=== PATIENT | female | born 1960 | race Caucasian/White ===

== ENCOUNTER 2024-07-29 10:45 | Observation (INO) | payer OTHER ==
--- OUTSIDE RECORDS SUMMARY | 2024-07-29 10:49 | XMS REPORT | Continuity of Care Document ---
Author Name Unknown Address [address] [place] [address] [facility] th[facility] Address [address] [place] [address] Care Team Providers Care Corn Grinder Name Role Phone ELIZABETH MORAN Primary Care Physician Unav ailable Radiology Attending Clinician Unavailable RADIOLOGY Attending Clinician Unavailable Addison Manuel Attending Clinician +[phone] Omari Pearson MD Attending Clinician +[phone] ADDISON OROSCO Attending Clinician Unavailable NURSE, NURSE Attending Clinician Unavailable Doctor Unassigned, [place] Attending Clinician [facility], Adc Fam Pob I Attending Clinician Unavailab Coby Chi Attending Clinician + [phone] CO[address] CHAVES Attending Clinician Unavailable CARRIE COSTA Admitting Clinician Unavailable ELIZABETH MORAN Admitting Clinician Unavail able Payers Payer Name Policy Type Policy Number Effective Date Expirati on Date Source Problems Condition Name Condition Details Condition Category Status Onset Date Resolution Date Last Treatment Date Treating Clinician Comments Source No known active problems No known active problems Disease [facility] Allergies, Adverse Reactions, Alerts Allergy Name Allergy Type Status Severity Reaction(s) Onset Date Inactive Date Treating Clinician Comments Source NO KNOWN ALLERGIE S Drug Class Active [facility] Social History Social Habit Start Date Stop Date Quantity Comments Source History of tobacco use Cigarette Smoker [facility] Sex Assigned At Female [facility] Sexual orientation [facility] Exposure to SARS-CoV-2 (event) 2022-07-28 00:00:2022-08-07 14:42:00 Not sure [facility] History of Social function 2022-01-19 00:00:00 2022-01-19 00:00:00 [facility] Alcohol intake 2022-01-19 00:00:00 2022-01-19 00:00:00 Current drinker of alcohol (finding) [facility] Tobacco use and exposure 2021-12-27 00:00:00 2021-12-27 00:00:00 Smokeless tobacco non-user [facility] Smoking Status Start Date Stop Date Source Tobacco smoking consumption unknown [facility] Smokes tobacco daily 2021-12-27 00:00:00 [facility] Medications Ordered Medication Name Filled Medication Name Start Date Stop Date Current Medication? Ordering Clinician Indication Dosage Frequency Signature (SIG) Comments Components Source DICLOFENAC 75 mg EC tablet 11-19 00:00: 00 Yes [id number] 4109 75mg TAKE 1 TABLET BY MOUTH IN THE MORNING AND 1 TABLET IN THE EVENING. TAKE WITH MEALS. [facility] DICLOFENAC 75 mg EC tablet 08-21 00:00: 00 Yes [id number] 4109 75mg TAKE 1 TABLET BY MOUTH IN THE MORNING AND 1 TABLET IN THE EVENING. TAKE WITH MEALS. [facility] DICLOFENAC 75 mg EC tablet 2021-05 00:00: 00 08-21 00:00 :00 No [id number] 4109 75mg TAKE 1 TABLET BY MOUTH IN THE MORNING AND 1 TABLET IN THE EVENING. TAKE WITH MEALS. [facility] DICLOFENAC 75 mg EC tablet 02-20 00:00: 00 Yes [id number] 9102 75mg TAKE 1 TABLET BY MOUTH IN THE MORNING AND 1 TABLET IN THE EVENING. TAKE WITH MEALS. [facility] diclofenac 75 mg EC tablet 12-27 00:00: 00 02-20 00:00 :00 No [id number] 9102 75mg Take 1 tablet by mouth in the morning and 1 tablet in the evening. Take with meals. [facility] carvediloL 12.5 mg tablet 8 00:00: 00 Yes [facility] LINZESS 145 mcg capsule 12-15 00:00: 00 Yes TAKE 1 CAPSULE BY MOUTH DAILY 30 MINUTES BEFORE BREAKFAST [facility] buprenorphi ne-naloxone 8-2 mg sublingual film 12-05 00:00: [address] 1[address]5 FILMS SUBLINGUAL Y DAILY [facility] meloxicam 15 mg tablet 11-15 00:00: 00 Yes 15mg Take 15 mg by mouth every morning. [facility] torsemide 20 mg tablet 11-15 00:00: 00 Yes 20mg Take 20 mg by mouth every morning. [facility] terbinafine HCL 250 mg tablet 10-16 00:00: 00 Yes 250mg Take 250 mg by mouth in the morning. [facility] Vital Signs Vital Name Observation Time Observation Value Comments S ourfarnaz Systolic blood pressure 2021-12-27 17:52:00 135 mm[Hg] [facility] Diastolic blood pressure 2021-12-27 17:52:00 75 mm[Hg] [facility] Heart rate 2021-12-27 17:52:00 65 /min [facility] Body height 2021-12-27 17:52:00 170.2 cm [facility] Body weight 2021-12-27 17:52:00 111.131 kg [facility] BMI 2021-12-27 17:52:00 38.37 kg/m2 [facility] Procedures Procedure Date / Time Performed Performing Clinician Source BI DIAGNOSTIC TOMOSYNTHESIS BILATERAL 2023-09-04 19:56:18 Requisition, Paper [facility] BI DIAGNOSTIC TOMOSYNTHESIS LEFT 2023-03-19 16:08:00 Elizabeth Moran [facility] BI DIAGNOSTIC TOMOSYNTHESIS BILATERAL 2022-08-07 21:39:22 Requisition, Paper [facility] NOTICE OF PRIVACY PRACTICES 2022-08-07 19:39:44 Doctor Unassigned, [place] [facility] CONSENT/REFUSAL FOR DIAGNOSIS AND TREATMENT 2022-08-07 19:39:28 Doctor Unassigned, [place] [facility] ASSIGNMENT OF BENEFITS 2022-08-07 19:39:12 Docto r Unassigned, [place] [facility] BI ALYSSA GUIDED CORE BREAST BIOPSY RIGHT 2022-01-19 16:51:02 Elizabeth Moran [facility] Encounters Start Date/Time End Date/Time Encounter Type Admission Type Attending Clinicians Care Facility Care Department Encounter ID Source 2023-09-04 14:12:23 2023-09-04 23:59:00 Hospital Encounter Radiology [facility] [id number] 350.1.13.10 4.2.7.2.686 [id number] [facility] 2023-09-04 14:12:23 2023-09-04 23:59:00 Outpatient R RADIOLOGY [facility] [id number] [facility] 2023-03-19 14:30:00 2023-03-19 23:59:00 Outpatient R RADIOLOGY [facility] [id number] [facility] 2023-03-19 10:39:00 2023-03-19 23:59:00 Hospital Encounter Radiology [facility] [id number] 350.1.13.10 4.2.7.2.686 [id number] [facility] 2023-03-06 15:00:00 2023-03-06 15:00:00 Outpatient R RADIOLOGY [facility] [id number] [facility] 2023-02-08 00:00:00 2023-02-08 00:00:00 Outpatient R RADIOLOGY [facility] [id number] [facility] 2022-11-16 00:00:00 2022-11-16 00:00:00 Addison Arnold [facility] [id number] 350.1.13.10 4.2.7.2.686 [id number] [facility] 2022-08-19 00:00:00 2022-08-19 00:00:00 Addison Arnold [facility] 1.2840.114 350.1.13.10 4.2.7.2.686 [id number] [facility] 2022-08-07 14:42:53 2022-08-07 23:59:00 Outpatient R RADIOLOGY [facility] [id number] [facility] 2022-08-07 14:42:53 2022-08-07 23:59:00 Hospital Encounter Radiology [facility] 1.2840.114 350.1.13.10 4.2.7.2.686 [id number] [facility] 2022-05-18 00:00:00 2022-05-18 00:00:00 RefAddison Martinez [facility] 1.84.114 350.1.13.10 4.2.7.2.686 [id number] [facility] 2022-02-20 00:00:00 2022-02-20 00:00:00 Refill Omari Pearson [facility] 1.84.114 350.1.13.10 4.2.7.2.686 [id number] [facility] 2022-01-19 09:49:54 2022-01-19 23:59:00 Outpatient R RADIOLOGY [facility] [id number] [facility] 2022-01-19 09:49:54 2022-01-19 23:59:00 Hospital Encounter Radiology [facility] 1.2.114 350.1.13.10 4.2.7.2.686 [id number] [facility] 2021-12-29 00:00:00 2021-12-29 00:00:00 Telephone Omari Pearson [facility] 1.284.114 350.1.13.10 4.2.7.2.686 [id number] [facility] 2021-12-27 13:05:00 2021-12-27 23:59:00 Outpatient ADDISON NIX [facility] [id number] [facility] 2021-12-27 14:00:00 2021-12-27 14:00:00 Office Visit MichelOmari [facility] 1.2.840.114 350.1.13.10 4.2.7.2.686 [id number] [facility] 2021-12-27 13:05:00 2021-12-27 13:05:00 Outpatient Bhupendra OROSCO [facility] [id number] [facility] 2021-12-19 12:29:36 2021-12-19 23:59:00 Hospital Encounter Radiology [facility] 1.2840.114 350.1.13.10 4.2.7.2.686 [id number] [facility] 2021-12-19 12:29:18 2021-12-19 23:59:00 Outpatient R RADIOLOGY [facility] [id number] [facility] 2021-12-19 12:29:18 2021-12-19 23:59:00 Hospital Encounter Radiology [facility] 1.2840.114 350.1.13.10 4.2.7.2.686 [id number] [facility] 2021-07-27 15:08:54 2021-07-27 23:59:00 Outpatient R RADIOLOGY [facility] RAD [id number] [facility] 2021-07-27 15:08:54 2021-07-27 23:59:00 Hospital Encounter Radiology [facility] [id number] 350.1.13.10 4.2.7.2.686 [id number] [facility] 2020-07-19 09:52:00 2020-07-19 09:52:00 Outpatient NURSE, N[facility]SE [id number] 2020-07-19 09:52:00 2020-07-19 09:52:00 Outpatient NURSE, NURSE [facility] [id number] [facility] 2020-01-10 00:00:00 2020-01-10 00:00:00 Patient Secure Msg Doctor Unassigned, [place] [facility] 1..114 350.1.13.10 4.2.7.2.686 [id number] [facility] 2020-01-08 15:19:04 2020-01-08 15:28:59 Laboratory Only Lab, [facility] Leah [facility] [address] 1..114 350.1.13.10 4.2.7.2.686 [id number] [facility] 2020-01-08 15:19:04 2020-01-08 15:28:59 Laboratory Only Lab, [facility] [address] 1.0.114 350.1.13.10 4.2.7.2.686 [id number] 2020-01-08 15:20:00 2020-01-08 15:20:00 Outpatient R [facility] [id number] [facility] 2020-01-08 00:00:00 2020-01-08 00:00:00 Letter (Out) Doctor Unassigned, [place] [facility] 1..114 350.1.13.10 4.2.7.2.686 [id number] [facility] Results Test Description Test Time Test Comments Results Result Comments Source BI DIAGNOSTIC TOMOSYNTHESIS BILATERAL 20:01:38 Examination:BI DIAGNOSTIC TOMOSYNTHESIS BILATERAL History:Patient is 63 year old and is seen for: ?Encounter for screening, unspecified. Computer-aided detection (CAD) utilized. Comparisons: 03/19/2023 BI DIAGNOSTIC TOMOSYNTHESIS LEFT, 08/07/2022 BI DIAGNOSTIC TOMOSYNTHESIS BILATERAL, 12/19/2021 BI DIAGNOSTIC TOMOSYNTHESIS BILATERAL, and 07/27/2021 BI SCREENING TOMOSYNTHESIS BILATERAL Prior exam with following findings: The left breast has scattered areas of fibroglandular density. There are stable subcentimeter focal asymmetries in the lower outer quadrant, anterior depth. ?Best seen on L SCC 10/ and L SML 33/77. CURRENT EXAM: Findings:The breasts have scattered areas of fibroglandular density. LeftAgain noted are stable appearing subcentimeter focal asymmetries in the lower outer quadrant of the left breast, anterior depth; best seen on LCC image 9 of 69 and LML image 17 of 79-stable and benign. There is no evidence of new suspicious masses, calcifications, or other abnormal findings in the left breast. RightThere is no evidence of new suspicious masses, calcifications, or other abnormal findings in the right breast. Impression:No mammographic evidence of malignancy. Recommendation:Annual mammographic follow-up - BilateralClinical follow-up is also recommended, and further management of clinical findings should be based on the results of clinical evaluation. BI-RADS Category: Both 2 - Benign [facility]
[2024-07-29] MEDS ORDERED: NA CHLORIDE 0.9% 250 ML ONE (11:46)
[2024-07-29 12:14] LABS: Absolute Eosinophils 0.1 K/uL (0-0.5); Absolute Lymphocytes (CBC) 2.1 K/uL (0.7-4.9); Absolute Monocytes 0.4 K/uL (0.1-1.3); Absolute Neutrophil 3.2 K/uL (1.8-8.0); Basophils % 0.7 % (0-1.3); Eosinophils % 1.8 % (0-4.4); Hematocrit 35.1 % (36.0-45.0); Hemoglobin 11.9 g/dL (12.0-15.0); Lymphocytes % 35.8 % (15.3-44.8); MCH 32.3 pg (27.0-35.0); MCV 95.1 fL (80-100); MPV 9.1 fL (7.6-11.3); Monocytes % 6.7 % (3.3-12.3); Platelets 163 thou/uL (152-406); RBC Red Blood Cell Count 3.69 M/uL (3.86-4.86); Red Cell Distribution Width 13.5 % (12.1-15.2)
[2024-07-29 12:20] LABS: Specific Gravity 1.006 (1.005-1.030); Sqamous Epithelial <5 /HPF (None Seen); Urine Bacteria None Seen /HPF (<20); Urine Bilirubin NEGATIVE (Negative); Urine Blood Negative (Negative); Urine Clarity Extremely Turbid (Clear); Urine Color Colorless (Yellow); Urine Culture Reflex Order NOT NEEDED; Urine Glucose NEGATIVE (Negative); Urine Ketones NEGATIVE (Negative); Urine Microscopic Reflex YN ORDER UMIC; Urine Nitrite NEGATIVE (Negative); Urine Protein NEGATIVE (Negative); Urine RBC None Seen /HPF (None Seen); Urine Urobilinogen Normal (Normal); Urine WBC None Seen /HPF (<5); Urine pH 7.5 (5.0-7.0)
[2024-07-29 12:21] LABS: PT Prothrombin Time 12.2 SECONDS (10.0-13.0); Protime INR 1.07
[2024-07-29 12:36] LABS: Albumin 4.1 g/dL (3.4-5.0); Albumin/Globulin Ratio 1.2 (1.1-1.8); Bilirubin Direct 0.2 mg/dL (0-0.2); Bilirubin Indirect, Calculated 0.2 mg/dL (0.2-0.8); Bilirubin Total 0.4 mg/dL (0.2-1.0); Globulin 3.5 g/dL (2.3-3.5); Magnesium 2.8 mg/dL (1.6-2.4); Protein, Total 7.6 g/dL (6.4-8.2); Troponin High Sensitivity 5.1 pg/mL (<58.9)
--- NOTE | 2024-07-29 12:54 | RAD REPORT ---
EXAMINATION: ONE VIEW CHEST XR CLINICAL INDICATION: Female, 63 years old.,COUGH TECHNIQUE: Frontal chest projection is submitted. Examination is limited by patient positioning and t echnique. COMPARISON: No prior exam. FINDINGS: The lungs are well inflated and clear. No pneumothorax or sizable effusion. The heart is normal in s ize. Mediastinal contours are unremarkable. IMPRESSION: No acute intrathoracic abnormalities.
--- NOTE | 2024-07-29 12:58 | RAD REPORT ---
EXAM: CT brain without contrast HISTORY: PAIN COMPARISON: None TECHNIQUE: Multiple contiguous axial images were obtained and a CT of the brain without contrast. Sag ittal and coronal reformats were performed. FINDINGS: No evidence of hydrocephalus, intracranial hemorrhage, or extra-axial fluid collection. The brain is normal in morphology. The calvarium is intact. The visualized paranasal sinuses and mastoid air cells are essentially clear . IMPRESSION: No evidence of acute intracranial abnormality. EXAM: CT of the cervical spine without contrast HISTORY: PAIN COMPARISON: None TECHNIQUE: Multiple contiguous axial images were obtained in a CT of the cervical spine without contr ast. Sagittal and coronal reformats were performed. FINDINGS: The vertebral bodies demonstrate normal height and alignment. No evidence of acute fracture or subluxation.. No degenerative changes are present. No prevertebral soft tissue swelling is seen. The posterior facets are well aligned. Normal alignment of the skull base with the cervical spine is seen. The lung apices are unremarkable. IMPRESSION: No evidence of acute osseous abnormality of the cervical spine.
--- NOTE | 2024-07-29 13:10 | RAD REPORT ---
EXAM: CT CHEST, ABDOMEN AND PELVIS WITHOUT CONTRAST CLINICAL INDICATION: Female, 63 years old. [facility] MAIN SYNCOPE, RT RIB PAIN TECHNIQUE: CT chest, abdomen and pelvis was performed, without IV contrast, as per department protoco l. Axial, sagittal and coronal reconstructions were obtained. One or more of the following dose reduction techniques were used: Automated exposure control, adjustment of the mA and/or kV according to the patient size, and/or iterative reconstruction. Unless otherwise specified, incidental findings do not require dedicated imaging follow-up. COMPARISON: No prior exam. FINDINGS: The lack of intravenous contrast limits the sensitivity of this exam for evaluation of solid visceral organs, vascular structures, and retroperitoneum. Chest: LOWER NECK/CHEST WALL: Visualized thyroid gland and soft tissues are normal. LUNGS AND AIRWAYS: Airways are clear. No evidence of airspace or interstitial process. No nodules. PLEURA: No pleural effusion. No pneumothorax. Hemidiaphragms are normally positioned. MEDIASTINUM AND LYMPH NODES: No mediastinal mass or fluid collection. Normal size mediastinal, hilar, and axillary lymph nodes. THORACIC AORTA: Normal caliber and configuration. PULMONARY ARTERIES: Normal caliber. HEART: Unremarkable. Abdomen/Pelvis LIVER: Normal in size and contour. No focal lesion. GALLBLADDER/BILE DUCTS: Status post cholecystectomy. PANCREAS: No mass, ductal dilation, or nafisa-pancreatic fluid. SPLEEN: Normal size. No focal lesion. ADRENALS: Normal; no mass. KIDNEYS AND URETERS: Normal size and contour. No hydronephrosis. GASTROINTESTINAL TRACT: Stomach is non-dilated. Small bowel has normal course and caliber. No colonic wall thickening or pericolonic inflammatory changes. PERITONEUM: No free fluid. LYMPH NODES: No lymphadenopathy. ABDOMINAL AORTA AND OTHER VESSELS: Normal caliber aorta and IVC. URINARY BLADDER: Normal contour. REPRODUCTIVE ORGANS: No pathologic process. MUSCULOSKELETAL: Mildly displaced anterior right seventh, eighth, and ninth rib fractures. Grade 1 an terolisthesis of L4 over L5. ADDITIONAL FINDINGS: None IMPRESSION: Mildly displaced anterior right seventh, eighth, and ninth rib fractures. No other acute or significant abnormalities within the chest, abdomen, or pelvis.
[2024-07-29] MEDS ORDERED: MORPHINE 4 MG/ML SYR ONE (15:02)
[2024-07-29] MEDS ORDERED: ONDANSETRON 4 MG/2 ML VIAL ONE (15:02)
[2024-07-29] MEDS ORDERED: DIAZEPAM 5 MG TABLET ONE (15:03)
--- NOTE | 2024-07-29 15:13 | EDPHYS ---
Physician Documentation [facility] Name: Lucy Crisostomo Age: 63 yrs Sex: Female : 1960 Arrival Date: 07/29/2024 Time: 10:45 Bed 13 Private MD: ED Physician Alexander Deshpande HPI: 07/29 15:02 This 63 yrs old Female presents to ER via EMS with complaints of syncop , junie fall , right chest wall pain. 15:02 . The patient has experienced syncope, became unresponsive, collapsed. Onset: The junie symptoms/episode began/occurred just prior to arrival. Duration: This was a single episode, that lasted 20 second(s). Context: the episode(s) was witnessed, by co-worker(s). The patient or guardian reports chest pain that is located primarily in the anterior chest wall, anterior aspect of right upper chest and right breast. Associated signs and symptoms: Pertinent positives: None. The chest pain is described as sharp. Modifying factors: The symptoms are alleviated by remaining still, the symptoms are aggravated by deep breath, movement, palpation of area. Historical: - Allergies: 11:15 No Known Allergies; ll1 - PMHx: 11:15 Hypertensive disorder; Osteoarthritis; ll1 - PSHx: 11:15 hysterectomy; ll1 - Immunization history:: Adult Immunizations up to date. - Infectious Disease History:: Denies. - Social history:: Smoking status: Patient denies any tobacco usage or history of. - Family history:: not pertinent. ROS: 15:02 Constitutional: Negative for fever, chills, and weight loss, Eyes: Negative for injury, junie pain, redness, and discharge, ENT: Negative for injury, pain, and discharge, Neck: Negative for injury, pain, and swelling, Cardiovascular: Negative for chest pain, palpitations, and edema, Abdomen/GI: Negative for abdominal pain, nausea, vomiting, diarrhea, and constipation, Back: Negative for injury and pain, : Negative for injury, bleeding, discharge, and swelling, MS/Extremity: Negative for injury and deformity, Skin: Negative for injury, rash, and discoloration, Psych: Negative for depression, anxiety, suicide ideation, homicidal ideation, and hallucinations, Allergy/Immunology: Negative for hives, rash, and allergies, Endocrine: Negative for neck swelling, polydipsia, polyuria, polyphagia, and marked weight changes, 15:02 Respiratory: Positive for cough, with no reported sputum, 15:02 Neuro: Positive for syncope, Exam: 15:02 Constitutional: This is a well developed, well nourished patient who is awake, alert, junie and in no acute distress. Head/Face: Normocephalic, atraumatic. Eyes: Pupils equal round and reactive to light, extra-ocular motions intact. Lids and lashes normal. Conjunctiva and sclera are non-icteric and not injected. Cornea within normal limits. Periorbital areas with no swelling, redness, or edema. ENT: Nares patent. No nasal discharge, no septal abnormalities noted. Tympanic membranes are normal and external auditory canals are clear. Oropharynx with no redness, swelling, or masses, exudates, or evidence of obstruction, uvula midline. Mucous membranes moist. Neck: Trachea midline, no thyromegaly or masses palpated, and no cervical lymphadenopathy. Supple, full range of motion without nuchal rigidity, or vertebral point tenderness. No Meningismus. Cardiovascular: Regular rate and rhythm with a normal S1 and S2. No gallops, murmurs, or rubs. Normal PMI, no JVD. No pulse deficits. Respiratory: Lungs have equal breath sounds bilaterally, clear to auscultation and percussion. No rales, rhonchi or wheezes noted. No increased work of breathing, no retractions or nasal flaring. Abdomen/GI: Soft, non-tender, with normal bowel sounds. No distension or tympany. No guarding or rebound. No evidence of tenderness throughout. Back: No spinal tenderness. No costovertebral tenderness. Full range of motion. Skin: Warm, dry with normal turgor. Normal color with no rashes, no lesions, and no evidence of cellulitis. MS/ Extremity: Pulses equal, no cyanosis. Neurovascular intact. Full, normal range of motion., bilateral aka Neuro: Awake and alert, GCS 15, oriented to person, place, time, and situation. Cranial nerves II-XII grossly intact. Motor strength 5/5 in all extremities. Sensory grossly intact. Cerebellar exam normal. Normal gait. Psych: Awake, alert, with orientation to person, place and time. Behavior, mood, and affect are within normal limits. 15:02 Chest/axilla: Inspection: normal, no acute changes, Palpation: tenderness, that is moderate, of the right breast, Axilla: are normal, Breasts: are normal, Lymph nodes: lymphadenopathy is not appreciated, 15:02 ECG was reviewed by the Attending Physician. Vital Signs: 12:00 BP 115 / 61; Pulse 60; Resp 18; Pulse Ox 98% on R/A; db 15:10 BP 158 / 73; Pulse 64; Resp 18; Pulse Ox 98% on R/A; db 16:00 BP 111 / 58; Pulse 52; Resp 16; Pulse Ox 97% ; db 17:00 BP 115 / 62; Pulse 50; Resp 18; Temp 98; Pulse Ox 95% on R/A; db MDM: 10:53 Medical Screening Exam initiated junie 15:06 Differential Diagnosis altered mental status. Differential Diagnosis: cardiac junie arrhythmia, cerebrovascular accident, emotional response, GI bleed, idiopathic syncope, pseudo seizure, seizure, sepsis, transient ischemic attack, vasovagal episode. Differential diagnosis: Blunt Chest Trauma Chest Wall Contusion Chest Wall Injury Hemopericardium Pleural Effusion Pneumomediastinum Pneumopericardium Pneumothorax Pulmonary Contusion Rib Fracture Ruptured Hemidiaphragm. Data reviewed: vital signs, nurses notes, EMS record, lab test result(s), EKG, radiologic studies, CT scan, plain films. Consideration of Admission/Observation Patient was admitted/placed on observation. Escalation of care including admission/observation considered. Independent interpretation of the following test(s) in the Emergency Department EKG: See my EKG interpretation above. Test considered but Not performed: Ultrasound no 2 d echo. Historians other than the Patient: EMS: ems well informed. Spouse/Significant Other: spouse well informed. Care significantly affected by the following chronic conditions: Hypertension, Obesity. Counseling: I had a detailed discussion with the patient and/or guardian regarding the historical points, exam findings, and any diagnostic results supporting the discharge/admit diagnosis, the presence of at least one elevated blood pressure reading (>120/80) during this emergency department visit, lab results, radiology results, the need for further work-up and treatment in the hospital. 07/29 10:55 Order name: Basic Metabolic Panel; Complete Time: 14:52 [facility] 07/29 10:55 Order name: CBC with Diff; Complete Time: 14:52 [facility] 07/29 10:55 Order name: LFT's; Complete Time: 14:52 ujnie 07/29 10:55 Order name: Magnesium; Complete Time: 14:52 junie 07/29 10:55 Order name: NT PRO-BNP; Complete Time: 14:52 junie 07/29 10:55 Order name: PT-INR; Complete Time: 14:52 junie 07/29 10:55 Order name: Troponin HS; Complete Time: 14:52 junie 07/29 10:55 Order name: Lipase; Complete Time: 14:52 junie 07/29 10:55 Order name: Urinalysis w/ reflexes; Complete Time: 14:52 junie 07/29 16:02 Order name: Basic Metabolic Panel EDMS 07/29 16:02 Order name: Basic Metabolic Panel EDMS 07/29 16:02 Order name: Basic Metabolic Panel EDMS 07/29 16:02 Order name: Basic Metabolic Panel EDMS 07/29 16:02 Order name: Basic Metabolic Panel EDMS 07/29 16:02 Order name: Basic Metabolic Panel EDMS 07/29 16:02 Order name: Basic Metabolic Panel EDMS 07/29 16:02 Order name: Basic Metabolic Panel EDMS 07/29 16:02 Order name: Lipid Profile EDMS 07/29 16:02 Order name: Lipid Profile EDMS 07/29 16:02 Order name: Magnesium EDMS 07/29 16:02 Order name: T4 Free EDMS 07/29 16:02 Order name: Thyroid Stimulating Hormone EDMS 07/29 16:02 Order name: CBC with Automated Diff EDMS 07/29 16:02 Order name: CBC with Automated Diff EDMS 07/29 16:02 Order name: CBC with Automated Diff EDMS 07/29 16:02 Order name: CBC with Automated Diff EDMS 07/29 16:02 Order name: CBC with Automated Diff EDMS 07/29 16:02 Order name: CBC with Automated Diff EDMS 07/29 16:02 Order name: CBC with Automated Diff EDMS 07/29 16:02 Order name: CBC with Automated Diff EDMS 07/29 16:03 Order name: Magnesium EDMS 07/29 16:03 Order name: Magnesium EDMS 07/29 16:03 Order name: Magnesium EDMS 07/29 16:03 Order name: Magnesium EDMS 07/29 16:03 Order name: Magnesium EDMS 07/29 16:03 Order name: Magnesium EDMS 07/29 16:03 Order name: Magnesium EDMS 07/29 16:03 Order name: Phosphorus EDMS 07/29 16:03 Order name: Phosphorus EDMS 07/29 16:03 Order name: Phosphorus EDMS 07/29 16:03 Order name: Phosphorus EDMS 07/29 16:03 Order name: Phosphorus EDMS 07/29 16:03 Order name: Phosphorus EDMS 07/29 16:03 Order name: Phosphorus EDMS 07/29 16:03 Order name: Phosphorus EDMS 07/29 16:03 Order name: Troponin High Sensitivity EDMS 07/29 16:03 Order name: Troponin High Sensitivity EDMS 07/29 16:03 Order name: Troponin High Sensitivity EDMS 07/29 10:55 Order name: XRAY Chest (1 view); Complete Time: 14:52 junie 07/29 11:20 Order name: Head C Spine Mpr Wo Con; Complete Time: 14:52 EDMS 07/29 11:22 Order name: Chest Abd Pelvis Wo Con; Complete Time: 14:52 EDMS 07/29 14:54 Order name: INCENTIVE SPIROMETRY [facility] 07/29 16:02 Order name: Echo with Doppler EDMS 07/29 16:23 Order name: ERT ORTHOSTATIC V/S EDMS 07/29 16:23 Order name: RC INCENTIVE SPIROMETRY EDMS 07/29 10:55 Order name: EKG; Complete Time: 10:55 [facility] 07/29 10:55 Order name: Cardiac monitoring; Complete Time: 11:16 [facility] 07/29 10:55 Order name: EKG - Nurse/Tech; Complete Time: 11:16 junie 07/29 10:55 Order name: IV Saline Lock; Complete Time: 12:05 [facility] 07/29 10:55 Order name: Labs collected and sent; Complete Time: 12:05 [facility] 07/29 10:55 Order name: O2 Per Protocol; Complete Time: 11:06 junie 07/29 10:55 Order name: O2 Sat Monitoring; Complete Time: 11:06 [facility] EC:02 Rate is 63 beats/min. Rhythm is regular. QRS [place] is Normal. [place] interval is normal. QT junie interval is normal. No Q waves. T waves are Normal. No ST changes noted. Clinical impression: NSR w/ Non-specific ST/T Changes and No evidence of ischemia. Interpreted by me. Reviewed by me. Administered Medications: 12:05 Drug: NS 0.9% IV 250 ml IV at bolus once; to be given as a bolus over 30 minutes Route: db IV; Rate: bolus; Site: left antecubital; 14:00 Follow up: Response: No adverse reaction; IV Status: Completed infusion; IV Intake: db 250ml 15:02 Drug: morphine IVP or IV 4 mg IVP once over 4 mins Route: IVP; Infused Over: 4 mins; db Site: left antecubital; 17:55 Follow up: Response: No adverse reaction db 15:02 Drug: Ondansetron IVP 4 mg IVP once; over 2 minutes Route: IVP; Site: left antecubital; db 18:00 Follow up: Response: No adverse reaction db 15:05 Drug: Diazepam PO 10 mg PO once Route: PO; db 18:15 Follow up: Response: No adverse reaction db Disposition Summary: 07/29/24 15:12 Hospitalization Ordered Notes: Hospitalization Status: Observation junie Provider: Maritza Renteria cha Location: Telemetry/MedSurg (observation) junie Condition: Fair junie Problem: new junie Symptoms: have improved junie Bed/Room Type: Standard junie Room Assignment: 214(07/29/24 16:36) bd Diagnosis - Syncope Near junie - Fall on same level, unspecified junie - Abnormal electrocardiogram [ECG] [EKG] junie - Multiple fractures of ribs, right side - 7,8 \T\ 9th junie Forms: - Medication Reconciliation Form junie - SBAR form junie - Leadership Thank You Letter junie Signatures: Dispatcher [employer] EDMS Marisa Escobar Corey, MD MD cha Lewis, Lynsay, RN RN ll1 Abby Chen RN RN db Corrections: (The following items were deleted from the chart) 11:20 10:55 Head C Spine Cap Wo Con+CT.RAD.BRZ ordered. EDMS EDMS 16:36 15:12 junie bd
--- NOTE | 2024-07-29 15:13 | ER ---
Nurse's Notes [facility] Name: Lucy Crisostomo Age: 63 yrs Sex: Female : 1960 Arrival Date: 07/29/2024 Time: 10:45 Bed 13 Private MD: Diagnosis: Syncope Near;Fall on same level, unspecified;Abnormal electrocardiogram [ECG] [EKG];Multiple fractures of ribs, right side-7,8 \T\ 9th Presentation: 07/29 11:12 Chief complaint: Patient states: Was at work, turned her head, felt dizzy, then passed ll1 out. Grabbed the dialysis machine to try to catch herself, and it fell on top of her. R sided abdominal/rib pains since accident. Dizziness off/on since. EMS states: LJ: [facility] off/on. BS-97 BP 100's systolic. . Patient protected her head during fall. Coronavirus screen: Client denies travel out of the [place] in the last 14 days. At this time, the client does not indicate any symptoms associated with coronavirus-19. Ebola Screen: Patient denies travel to an Ebola-affected area in the 21 days before illness onset. Initial Sepsis Screen: Does the patient meet any 2 criteria? No. Patient's initial sepsis screen is negative. Does the patient have a suspected source of infection? No. Patient's initial sepsis screen is negative. Risk Assessment: Do you want to hurt yourself or someone else? Patient reports no desire to harm self or others. Onset of symptoms was July 29, 2024. 11:12 Method Of Arrival: EMS: [facility] ll1 11:12 Acuity: KRISTY 2 ll1 Historical: - Allergies: 11:15 No Known Allergies; ll1 - PMHx: 11:15 Hypertensive disorder; Osteoarthritis; ll1 - PSHx: 11:15 hysterectomy; ll1 - Immunization history:: Adult Immunizations up to date. - Infectious Disease History:: Denies. - Social history:: Smoking status: Patient denies any tobacco usage or history of. - Family history:: not pertinent. Screenin:00 [facility] ED Fall Risk Assessment (Adult) History of falling in the last 3 months, db including since admission Yes- single mechanical fall (1 pt) Confusion or Disorientation No (0 pts) Intoxicated or Sedated No (0 pts) Impaired Gait No (0 pts) Mobility Assist Device Used No (0 pt) Altered Elimination No (0 pt) Score/Fall Risk Level 0 - 2 = Low Risk Oriented to surroundings, Maintained a safe environment. Abuse screen: Denies threats or abuse. Denies injuries from another. Nutritional screening: No deficits noted. Tuberculosis screening: No symptoms or risk factors identified. Assessment: 12:06 Reassessment: Patient appears in no apparent distress at this time. Patient and/or db family updated on plan of care and expected duration. Pain level reassessed. Patient is alert, oriented x 3, equal unlabored respirations, skin warm/dry/pink. General: Appears in no apparent distress. comfortable, Behavior is calm, cooperative. Pain: Complains of pain in right rib. Neuro: Level of Consciousness is awake, alert, obeys commands, Oriented to person, place, time, situation, Reports a syncopal episode. 14:00 Reassessment: Patient appears in no apparent distress at this time. Patient and/or db family updated on plan of care and expected duration. Pain level reassessed. Patient is alert, oriented x 3, equal unlabored respirations, skin warm/dry/pink. General: Appears in no apparent distress. comfortable. 16:05 Reassessment: Patient appears in no apparent distress at this time. Patient and/or db family updated on plan of care and expected duration. Pain level reassessed. PT IS RESTING QUIETLY, SLEEPING. Respiratory: Airway is patent Respiratory effort is even, unlabored, Respiratory pattern is regular, symmetrical. 17:35 Reassessment: Patient appears in no apparent distress at this time. Patient and/or db family updated on plan of care and expected duration. Pain level reassessed. Patient is alert, oriented x 3, equal unlabored respirations, skin warm/dry/pink. Patient states feeling better. Patient states symptoms have improved. Vital Signs: 12:00 BP 115 / 61; Pulse 60; Resp 18; Pulse Ox 98% on R/A; db 15:10 BP 158 / 73; Pulse 64; Resp 18; Pulse Ox 98% on R/A; db 16:00 BP 111 / 58; Pulse 52; Resp 16; Pulse Ox 97% ; db 17:00 BP 115 / 62; Pulse 50; Resp 18; Temp 98; Pulse Ox 95% on R/A; db ED Course: 10:48 Patient arrived in ED. bd 10:53 Alexander Deshpande MD is Attending Physician. junie 11:14 Triage completed. ll1 11:15 Arm band placed on. ll1 11:26 Head C Spine Mpr Wo Con In Process Unspecified. EDMS 11:26 Chest Abd Pelvis Wo Con In Process Unspecified. EDMS 11:28 XRAY Chest (1 view) In Process Unspecified. EDMS 11:28 Abby Chen, ALBERTO is Primary Nurse. db 11:29 Patient moved back from CT. db 11:50 Initial lab(s) drawn, by me, sent to lab. Urine collected: clean catch specimen. db Inserted saline lock: 20 gauge in left antecubital area, using aseptic technique. Blood collected. Flushed with 10 mL NS. 15:11 Maritza Renteria MD is Hospitalizing Provider. junie 15:13 INCENTIVE SPIROMETRY Sent. db 15:16 Patient has correct armband on for positive identification. Bed in low position. Call db light in reach. Side rails up X2. Client placed on continuous cardiac and pulse oximetry monitoring. NIBP monitoring applied. monitor and storage bin tender on. Pulse ox on. Warm blanket given. Pillow given. 18:00 Provided Education on: ADMIT . db 18:00 No provider procedures requiring assistance completed. Patient admitted, IV remains in db place. Administered Medications: 12:05 Drug: NS 0.9% IV 250 ml IV at bolus once; to be given as a bolus over 30 minutes Route: db IV; Rate: bolus; Site: left antecubital; 14:00 Follow up: Response: No adverse reaction; IV Status: Completed infusion; IV Intake: db 250ml 15:02 Drug: morphine IVP or IV 4 mg IVP once over 4 mins Route: IVP; Infused Over: 4 mins; db Site: left antecubital; 17:55 Follow up: Response: No adverse reaction db 15:02 Drug: Ondansetron IVP 4 mg IVP once; over 2 minutes Route: IVP; Site: left antecubital; db 18:00 Follow up: Response: No adverse reaction db 15:05 Drug: Diazepam PO 10 mg PO once Route: PO; db 18:15 Follow up: Response: No adverse reaction db Medication: 17:21 VIS not applicable for this client. db Intake: 14:00 IV: 250ml; Total: 250ml. db Outcome: 15:12 Decision to Hospitalize by Provider. junie 18:00 Admitted to Med/surg accompanied by zara, jeff 18:00 Condition: stable 18:00 Instructed on the need for admit, 18:17 Patient left the ED. db Signatures: Dispatcher [employer] EDMarisa Broussard Corey, MD MD cha Lewis, Lynsay, RN RN ll1 Abby Chen RN RN db Corrections: (The following items were deleted from the chart) 17:21 17:00 BP 115 / 62; Pulse 50bpm; Resp 18bpm; Pulse Ox 95% RA; db db
[2024-07-29] MEDS ORDERED: ACETAMINOPHEN 325 MG TABLET PO PRN (15:56)
[2024-07-29] MEDS ORDERED: HYDROCODONE/APAP 7.5/325 MG TAB PO PRN (16:02)
[2024-07-29] MEDS ORDERED: ONDANSETRON 4 MG/2 ML VIAL IV PRN (16:02)
--- NOTE | 2024-07-29 16:04 | P.HP ---
Certification for Inpatient Patient admitted to: Observation With expected LOS: <2 Midnights Practitioner: I am a practitioner with admitting privileges, knowledge of patient current condition, hospital course, and medical plan of care. Services: Services provided to patient in accordance with Admission requirements found in Title 42 Section 412.3 of the Code of Federal Regulations Patient History Date of Service: 07/29/24 Reason for admission: Syncopal episode History of Present Illness: Lucy Crisostomo is a 63 year old female with Pmhx HTN, HLD, and osteroarthritis who presented to the ED after a syncopal episode at work. 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 On evaluation, she reports still feeling dizzy but is not sure if she hasn't recovered fully. Head and cervical spine CT reports "The vertebral bodies demonstrate normal height and alignment. No evidence of acute fracture or subluxation.. No degenerative changes are present. No prevertebral soft tissue swelling is seen. The posterior facets are well aligned. Normal alignment of the skull base with the cervical spine is seen. The lung apices are unremarkable. No evidence of acute osseous abnormality of the cervical spine." Chest x-ray report "No acute intrathoracic abnormalities. " CT CAP reports "Mildly displaced anterior right seventh, eighth, and ninth rib fractures. No other acute or significant abnormalities within the chest, abdomen, or pelvis." EKG preliminary report " Rate is 63 beats/min. Rhythm is regular. QRS [place] is Normal. [place] interval is normal. QT interval is normal. No Q waves. T waves are Normal. No ST changes noted. Clinical impression: NSR w/ Non-specific ST/T Changes and No evidence of ischemia. Lucy will be admitted to hospitalist service for further evaluation and treatment for syncopal episode, Dr. Ohara consulted. - Past Medical/Surgical History -: HTN -: HLD -: osteoarthritis -: hysterectomy - Social History Smoking Status: Current every day smoker (1/2 pack daily) Alcohol use: No CD- Drugs: No Review of Systems Other: Per HPI Physical Examination - Physical Exam General: Alert, In no apparent distress, Oriented x3 HEENT: Atraumatic, Normocephalic, PERRLA Neck: 2+ carotid pulse no bruit, JVD not distended Respiratory: Clear to auscultation bilaterally, Normal air movement Cardiovascular: Normal pulses, Normal S1 S2 Capillary refill: <2 Seconds Gastrointestinal: Normal bowel sounds, Soft and benign Musculoskeletal: No clubbing Integumentary: No rashes Neurological: Normal speech, Normal tone - Studies Laboratory Data (last 24 hrs) 07/29/24 07/29/24 07/29/24 11:58 11:58 11:58 WBC 5.80 Hgb 11.9 L Hct 35.1 L Plt Count 163 PT 12.2 INR 1.07 Sodium 136 Potassium 4.0 BUN 21 H Creatinine 0.80 Glucose 93 Magnesium 2.8 H Total Bilirubin 0.4 AST 15 ALT 21 Alkaline Phosphatase 63 Lipase 39 Assessment and Plan - Plan Assessment and plan Syncopal episode -Orthostatics vitals -ECHO ordered -Continuous telemetry -Consult cardiology -Trend troponin Mild displaced anterior right seventh, eighth, and ninth rib fracture -Incentive spirometer -Pain control HTN/HLD Osteoarthritis -Continue home medication if appropriate DVT PPx SCD Full code LOS 24-hour OBS Discharge Plan: Home Plan to discharge in: 24 Hours - Advance Directives Does patient have a Living Will: No Does patient have a Durable POA for Healthcare: No
[2024-07-29 18:46] VITALS: O2SAT 95
[2024-07-29] MEDS: MORPHINE 4 MG/ML SYR IV PRN (19:32)
[2024-07-29 19:44] VITALS: BMI 31.6
[2024-07-29] MEDS: NA CHLORIDE 0.9% 1,000 ML IV SCH (20:02)
[2024-07-30 04:39] LABS: Absolute Eosinophils 0.1 K/uL (0-0.5); Absolute Lymphocytes (CBC) 1.7 K/uL (0.7-4.9); Absolute Monocytes 0.4 K/uL (0.1-1.3); Absolute Neutrophil 2.2 K/uL (1.8-8.0); Basophils % 0.6 % (0-1.3); Eosinophils % 1.5 % (0-4.4); Hematocrit 31.8 % (36.0-45.0); Hemoglobin 10.7 g/dL (12.0-15.0); Lymphocytes % 38.1 % (15.3-44.8); MCH 32.9 pg (27.0-35.0); MCHC 33.6 g/dL (32.0-36.0); MCV 97.9 fL (80-100); Monocytes % 8.5 % (3.3-12.3); Neutrophils % 51.3 % (41.7-73.7); Nucleated Red Blood Cells % 0.1 % (0-0); Platelets 141 thou/uL (152-406); RBC Red Blood Cell Count 3.24 M/uL (3.86-4.86); Red Cell Distribution Width 13.4 % (12.1-15.2)
[2024-07-30 05:16] LABS: Anion Gap 7.2 mEq/L (5.0-15.0); Magnesium 2.5 mg/dL (1.6-2.4); Phosphorus 3.8 mg/dL (2.5-4.9); Potassium 4.2 mEq/L (3.5-5.1); Thyroid Stimulating Hormone 0.903 uIU/mL (0.358-3.740)
--- NOTE | 2024-07-30 12:14 | P.CNS ---
Date of Consult: 07/30/24 Chief Complaint: Syncopal episode History of Present Illness: Patient with PMH of HTN, presented after she had a dizzy spell, possible syncope and a fall, hitting her ribs, denies chest pain, no palpitations, no SOB, she report that EMS told her that she was having [place], no other cardiac symptoms. Allergies No Known Allergies Allergy (Verified 07/30/24 01:56) Home medications list reviewed: Yes Home Medications: Estradiol [Estrace] 1 mg PO DAILY 07/29/24 Meloxicam 1 tab PO DAILY 07/29/24 Pantoprazole [Protonix Tab*] 1 tab PO DAILY 07/29/24 carvediloL [Coreg] 25 mg PO BID 07/29/24 Torsemide [Soaanz] 40 mg PO DAILY 07/30/24 - Past Medical/Surgical History Diabetic: No -: HTN -: HLD -: osteoarthritis -: TIOTAL HYSTERECTOMY -: CHOLECYSTECTOMY -: APPY -: LEFT L;EG FRACTURE REPAIR - Social History Alcohol use: No CD- Drugs: No Caffeine use: Yes Place of Residence: Home Review of Systems 10-point ROS is otherwise unremarkable Physical Examination Temp Pulse Resp BP Pulse Ox 98.2 F 66 18 141/65 H 94 07/30/24 08:00 07/30/24 08:00 07/30/24 08:28 07/30/24 08:00 07/30/24 08:28 General: Alert, In no apparent distress HEENT: Atraumatic, PERRLA, Mucous membr. moist/pink, EOMI, Sclerae nonicteric Neck: Supple, 2+ carotid pulse no bruit, No LAD, Without JVD or thyroid abnormality Respiratory: Clear to auscultation bilaterally, Normal air movement Cardiovascular: Regular rate/rhythm, Normal S1 S2 Gastrointestinal: Normal bowel sounds, No tenderness Musculoskeletal: No tenderness Integumentary: No rashes Neurological: Normal gait, Normal speech, Normal tone, Normal affect Lymphatics: No axilla or inguinal lymphadenopathy Laboratory Data (last 24 hrs) 07/29/24 07/29/24 07/29/24 11:58 11:58 11:58 WBC 5.80 Hgb 11.9 L Hct 35.1 L Plt Count 163 PT 12.2 INR 1.07 Sodium 136 Potassium 4.0 BUN 21 H Creatinine 0.80 Glucose 93 Magnesium 2.8 H Total Bilirubin 0.4 AST 15 ALT 21 Alkaline Phosphatase 63 Lipase 39 - Problems (1) Near syncope Current Visit: Yes Status: Acute Plan: most likely vagal in nature vs orthostatic tele overnight did not show any arrhythmia patient is pending an echo lower Coreg to 12.5 mg po BID If echo is normal then patient can be discharged and follow up with cardiology as outpatient. (2) HTN (hypertension) Current Visit: Yes Status: Acute Plan: adjust medications as above.
[2024-07-30 12:24] VITALS: TEMP 98.1
[2024-07-30] MEDS: carvediloL 25 MG TAB PO SCH (13:51)
[2024-07-30 13:53] VITALS: BP 141/65
--- NOTE | 2024-07-30 14:15 | ECHO ---
HEIGHT: 5 ft 6 in WEIGHT: 196 lb 0 oz DATE OF STUDY: 07/30/[address]: Vicki Araujo NP 2-DIMENSIONAL: YES M.MODE: YES DOPPLER: YES COLOR FLOW: YES TDS: PORTABLE: YES DEFINITY: BUBBLE STUDY: DIAGNOSIS: SYNCOPAL EPISODE CARDIAC HISTORY: CATHERIZATION: NO SURGERY: NO PROSTHETIC VALVE: NO PACEMAKER: NO MEASUREMENTS (cm) DIASTOLIC (NORMALS) SYSTOLIC (NORMALS) IVSd 1.0 (0.6-1.2) LA Diam 3.1 (1.9-4.0) LVEF 60-65% LVIDd 5.2 (3.5-5.7) LVIDs 3.3 (2.0-3.5) %FS 36% LVPWd 1.2 (0.6-1.2) Ao Diam 2.7 (2.0-3.7) 2 DIMENSIONAL ASSESSMENT: RIGHT ATRIUM: NORMAL LEFT ATRIUM: NORMAL RIGHT VENTRICLE: NORMAL LEFT VENTRICLE: NORMAL TRICUSPID VALVE: NORMAL MITRAL VALVE: NORMAL PULMONIC VALVE: NORMAL AORTIC VALVE: NORMAL PERICARDIAL EFFUSION: NONE AORTIC ROOT: NORMAL LEFT VENTRICULAR WALL MOTION: NORMAL DOPPLER/COLOR FLOW: NORMAL COMMENTS: 1. NORMAL LEFT VENTRICULAR SYSTOLIC FUNCTION, EJECTION FRACTION 60-65%, NORMAL WALL MOTION 2. NORMAL DIASTOLIC FUNCTION TECHNOLOGIST: KATY BALL
--- NOTE | 2024-07-30 14:33 | P.DS ---
Admission Date: 07/29/24 Discharge Date: 07/30/24 Disposition: ROUTINE DISCHARGE Discharge Condition: GOOD Reason for Admission: Syncopal episode Brief History of Present Illness: Diagnosis Syncopal episode Mild displaced anterior right seventh, eighth, and ninth rib fracture HTN/HLD Osteoarthritis [facility] 07/29/2024 Lucy Crisostomo is a 63 year old female with Pmhx HTN, HLD, and osteroarthritis who presented to the ED after a syncopal episode at work. 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 On evaluation, she reports still feeling dizzy but is not sure if she hasn't recovered fully. Head and cervical spine CT reports "The vertebral bodies demonstrate normal height and alignment. No evidence of acute fracture or subluxation.. No degenerative changes are present. No prevertebral soft tissue swelling is seen. The posterior facets are well aligned. Normal alignment of the skull base with the cervical spine is seen. The lung apices are unremarkable. No evidence of acute osseous abnormality of the cervical spine." Chest x-ray report "No acute intrathoracic abnormalities. " CT [facility] reports "Mildly displaced anterior right seventh, eighth, and ninth rib fractures. No other acute or significant abnormalities within the chest, abdomen, or pelvis." EKG preliminary report " Rate is 63 beats/min. Rhythm is regular. QRS [place] is Normal. NV interval is normal. QT interval is normal. No Q waves. T waves are Normal. No ST changes noted. Clinical impression: NSR w/ Non-specific ST/T Changes and No evidence of ischemia. Lucy will be admitted to hospitalist service for further evaluation and treatment for syncopal episode, Dr. Ohara consulted. Hospital Course: Patient was admitted and treated for the following diagnosis Syncopal episode -Orthostatics vitals -ECHO WNL -Continuous telemetry with no arrhythmias noted -Consult cardiology- recommend outpatient event monitor -Troponin trend flat Mild displaced anterior right seventh, eighth, and ninth rib fracture -Incentive spirometer -Pain controlled, lidocaine patch HTN/HLD Osteoarthritis -Continued home medication if appropriate On 07/30/24, Lucy was seen on morning rounds and deemed to be hemodynamically stables. Dr. Ohara has evaluated the patient and the ECHO and had cleared her for discharge reducing coreg to 12.5 mg BID and follow up with him for an event monitor Physical Exam General: Alert and Oriented x3, NAD HEENT: Atraumatic, Normocephalic, PERRLA Neck: 2+ carotid pulse no bruit, JVD not distended Respiratory: Clear to auscultation bilaterally, Normal air movement, on RA Cardiovascular: Normal pulses, Normal S1 S2 Capillary refill: <2 Seconds Gastrointestinal: Normal bowel sounds, Soft and benign Musculoskeletal: tenderness to right anterior ribs Integumentary: No rashes Neurological: Normal speech, Normal tone Vital Signs/Physical Exam: Temp Pulse Resp BP Pulse Ox 98.1 F 66 16 141/65 H 97 07/30/24 12:00 07/30/24 13:51 07/30/24 12:00 07/30/24 13:51 07/30/24 12:00 Laboratory Data at Discharge: WBC 4.30 thou/uL (4.3-10.9) 07/30/24 04:17 Hgb 10.7 g/dL (12.0-15.0) L D 07/30/24 04:17 Hct 31.8 % (36.0-45.0) L 07/30/24 04:17 Plt Count 141 thou/uL (152-406) L 07/30/24 04:17 PT 12.2 SECONDS (10.0-13.0) 07/29/24 11:58 INR 1.07 07/29/24 11:58 Sodium 142 mEq/L (136-145) D 07/30/24 04:17 Potassium 4.2 mEq/L (3.5-5.1) 07/30/24 04:17 BUN 21 mg/dL (7-18) H 07/30/24 04:17 Creatinine 0.77 mg/dL (0.55-1.02) 07/30/24 04:17 Glucose 105 mg/dL (74-106) 07/30/24 04:17 Phosphorus 3.8 mg/dL (2.5-4.9) 07/30/24 04:17 Magnesium 2.5 mg/dL (1.6-2.4) H 07/30/24 04:17 Total Bilirubin 0.4 mg/dL (0.2-1.0) 07/29/24 11:58 AST 15 U/L (15-37) 07/29/24 11:58 ALT 21 U/L (13-56) 07/29/24 11:58 Alkaline Phosphatase 63 U/L (45-117) 07/29/24 11:58 Triglycerides 93 mg/dL (<150) 07/30/24 04:17 Cholesterol 146 mg/dL (<200) 07/30/24 04:17 HDL Cholesterol 52 mg/dL (40-60) 07/30/24 04:17 Cholesterol/HDL Ratio 2.81 07/30/24 04:17 Lipase 39 U/L (13-75) 07/29/24 11:58 Home Medications: Estradiol [Estrace] 1 mg PO DAILY 07/29/24 Meloxicam 1 tab PO DAILY 07/29/24 Pantoprazole [Protonix Tab*] 1 tab PO DAILY 07/29/24 Lidocaine 4% Patch [Lidoderm 5% Patch*] 1 patch TD DAILY 5 Days #5 patch 07/30/24 Torsemide [Soaanz] 40 mg PO DAILY 07/30/24 carvediloL [Coreg*] 12.5 mg PO BID 6AM 6PM 30 Days #60 tab 07/30/24 traMADol HCL [Ultram*] 50 mg PO Q6H PRN 5 Days #15 tab 07/30/24 New Medications: carvediloL [Coreg*] 12.5 mg PO BID 6AM 6PM 30 Days #60 tab Lidocaine 4% Patch [Lidoderm 5% Patch*] 1 patch TD DAILY 5 Days #5 patch traMADol HCL [Ultram*] 50 mg PO Q6H PRN 5 Days #15 tab PRN Reason: Pain Physician Discharge Instructions: 1. Please call and schedule a follow-up appointment with your PCP in 3-5 days - Please follow-up with your PCP for medication refills/adjustments 2. Please call and schedule a follow-up appointment with Dr. Ohara in 3-5 days 3. Continue heart healthy diet 4. activity restrictions fall precautions 5. Return to the ED if symptoms worsen Changes to medication Coreg 12.5 mg twice daily changed from Coreg 25 mg twice daily Diet: AHA Activity: Fall precautions Followup: Kris Ohara MD [ACTIVE - CAN ADMIT] - NONE,NONE [Primary Care Provider] -
[2024-07-30] MEDS ORDERED: carvediloL 12.5 MG TAB PO SCH (18:00)
[2024-07-31] MEDS ORDERED: PANTOPRAZOLE 40MG TABLET PO SCH (09:00)
[2024-07-31] MEDS ORDERED: LIDOCAINE 4% PATCH TOP SCH (09:00)
[2024-07-31] MEDS ORDERED: MELOXICAM 7.5 MG TAB PO SCH (09:00)
== END 2024-07-30 15:17 | disposition home or self-care (01) ==
LOC: ER 10:45 → ERHOLD 15:56 → 2ND 17:29
PROVIDERS: ADMIT Internal Medicine; ATTEND Internal Medicine
DX: R55 Syncope and collapse (principal); I10 Essential (primary) hypertension; R78.5 Finding of other psychotropic drug in blood; M19.90 Unspecified osteoarthritis, unspecified site; S22.41XA Multiple fractures of ribs, right side, initial encounter for closed fracture; W18.39XA Other fall on same level, initial encounter; W20.8XXA Other cause of strike by thrown, projected or falling object, initial encounter; Y93.89 Activity, other specified; Y92.89 Other specified places as the place of occurrence of the external cause; Y99.0 Civilian activity done for income or pay
CPT/HCPCS: 36415; 70450; 71045; 71250; 72125; 74176; 80048; 80061; 80076; 81001; 83690; 83735; 83880; 84100; 84439; 84443; 84484; 85025; 85610; 93005; 93306; 96365; 96366; 96375; 99285; G0378; J2405; J7030; J7050